=== PATIENT | male | born 1990 | race Caucasian/White ===

== ENCOUNTER 2023-10-20 23:09 | Emergency (ER) | payer BC, OTHER ==
[2023-10-20 23:32] VITALS: BP 124/87; PULSE 86; RESP 17; TEMP 98.6
--- NOTE | 2023-10-21 01:43 | ED ---
ENT HPI - General Chief complaint: ENT Stated complaint: FB in ear Source: patient Mode of arrival: ambulatory Limitations: no limitations - History of Present Illness Initial comments: 32-year-old male presenting to the ED with a chief complaint of foreign body in his right ear. He states after he showered he was cleaning his ear with a Q-tip when the cotton tip broke off and stuck itself in his ear. States he tried irrigating at home with peroxide and also pulling it out with tweezers at home however he was unable to retrieve this prompting presentation to the ED for fur ther evaluation. Tetanus status up-to-date. No other complaints. - Related Data Home Medications Medication Instructions Recorded Confirmed No Known Home Medications 11/08/14 06/08/15 Allergies Allergy/AdvReac Type Severity Reaction Status Date / Time sulfamethoxazole Allergy Unknown Verified 10/20/23 23:30 [From Bactrim] trimethoprim [From Bactrim] Allergy Unknown Verified 10/20/23 23:30 Review of Systems ROS Statement: Those systems with pertinent positive or pertinent negative responses have been documented in the HPI. ROS Other: All systems not noted in ROS Statement are negative. Past Medical History Past Medical History: No Reported History History of Any Multi-Drug Resistant Organisms: None Reported Past Surgical History: No Surgical Hx Reported Past Psychological History: No Psychological Hx Reported Smoking Status: Never smoker Past Alcohol Use History: Occasional Past Drug Use History: None Reported General Exam Limitations: no limitations General appearance: alert, in no apparent distress ENT exam: Present: other (Right TM intact. Cotton swab appears to be stuck to the right TM.) Neck exam: Present: normal inspection Respiratory exam: Present: normal lung sounds bilaterally Cardiovascular Exam: Present: regular rate, normal rhythm GI/Abdominal exam: Present: soft Neurological exam: Present: alert, oriented X3 Skin exam: Present: warm, dry Course Vital Signs 10/20/23 23:28 Temperature 98.6 F Pulse Rate 86 Respiratory 17 Rate Blood Pressure 124/87 O2 Sat by Pulse 100 Oximetry Procedures - Foreign Body Removal Ear Foreign Body Suspected: other (Cotton swab) Foreign Body Removal Technique: curette Tympanic Membrane Intact: Yes Complications: none Additional Comments: Irrigation performed with sterile saline dislodged cotton ball. Following force ps and curette used to remove remainder of cotton swab. Medical Decision Making - Medical Decision Making Was pt. sent in by a medical professional or institution (HUSEYIN Casas, SHAPING MACHINE TENDER, urgent care, hospital, or assisted...) When possible be specific @ -No Did you speak to anyone other than the patient for history (EMS, parent, family, police, friend...)? What history was obtained from this source @ -No Did you review nursing and triage notes (agree or disagree)? Why? @ -I reviewed and agree with nursing and triage notes Were old charts reviewed (outside hosp., previous admission, EMS record, old EKG, old radiological studies, urgent care reports/EKG's, assisted records)? Report findings @ -No old charts were reviewed Differential Diagnosis (chest pain, altered mental status, abdominal pain women, abdominal pain men, vaginal bleeding, weakness, fever, dyspnea, syncope, headache, dizziness, GI bleed, back pain, seizure, CVA, palpatations, mental health, musculoskeletal)? @ -not applicable EKG interpreted by me (3pts min.). @ -None X-rays interpreted by me (1pt min.). @ -None done CT interpreted by me (1pt min.). @ -None done U/S interpreted by me (1pt. min.). @ -None done What testing was considered but not performed or refused? (CT, X-rays, U/S, labs)? Why? @ -None What meds were considered but not given or refused? Why? @ -None Did you discuss the management of the patient with other professionals (professionals i.e. HUSEYIN Casas, SHAPING MACHINE TENDER, lab, RT, psych nurse, social service manager, sheep farm manager, teacher, consumer safety officer, case management assistant)? Give summary @ -No Was smoking cessation discussed for >3mins.? @ -No Was critical care preformed (if so, how long)? @ -No Were there social determinants of health that impacted care today? How? (Homelessness, low income, unemployed, alcoholism, drug addiction, tra nsportation, low edu. Level, literacy, decrease access to med. care, halfway, rehab)? @ -No Was there de-escalation of care discussed even if they declined (Discuss DNR or withdrawal of care, Hospice)? DNR status @ -No What co-morbidities impacted this encounter? (DM, HTN, Smoking, COPD, CAD, Cancer, CVA, ARF, Chemo, Hep., AIDS, mental health diagnosis, sleep apnea, morbid obesity)? @ -None Was patient admitted / discharged? Hospital course, mention meds given and route, prescriptions, significant lab abnormalities, going to OR and other pertinent info. @ -Discharge 32-year-old male presents to the ED with constant swab stuck inside his right ear canal. Foreign body was removed. For further details please see procedure note. Discharged home in stable condition. Discussed return precautions with patient who verbalizes agree. Undiagnosed new problem with uncertain prognosis? @ -No Drug Therapy requiring intensive monitoring for toxicity (Heparin, Nitro, Insulin, Cardizem)? @ -No Were any procedures done? @ -Yes, foreign body removal Diagnosis/symptom? @ -foreign body in right ear, cotton swab Acute, or Chronic, or Acute on Chronic? @ -Acute Uncomplicated (without systemic symptoms) or Complicated (systemic symptoms)? @ -Uncomplicated Side effects of treatment? @ -No Exacerbation, Progression, or Severe Exacerbation? @ -No Poses a threat to life or bodily function? How? (Chest pain, [place], [place], pneumonia, PE, COPD, DKA, ARF, appy, cholecystitis, CVA, Diverticulitis, Homicidal, Suicidal, threat to staff... and all critical care pts) @ -No Disposition Clinical Impression: Foreign body in ear Disposition: HOME SELF-CARE Condition: Good Instructions (If sedation given, give patient instructions): Ear Foreign Body (ED) Additional Instructions: Please return to the Emergency Department if symptoms worsen or any other concerns. Please do not stick any foreign objects into the ear canal. Is patient prescribed a controlled substance at d/c from ED?: No Referrals: Felix Hernandez MD [Primary Care Provider] - 1-2 days Time of Disposition: 01:48
== END 2023-10-21 01:53 | disposition home or self-care (01) ==
LOC: EC 23:09
DX: T16.1XXA Foreign body in right ear, initial encounter (principal); W44.8XXA Other foreign body entering into or through a natural orifice, initial encounter
CPT/HCPCS: 69200; 99282